=== PATIENT | female | born 1975 | race Caucasian/White ===

== ENCOUNTER 2024-02-20 10:33 | Outpatient (CLI) | payer OTHER, SELFPAY ==
--- NOTE | 2024-02-20 10:39 | XR_ITS ---
WS: [id number] PROCEDURE: XR chest 2V* [id number] CLINICAL INFORMATION: ASTHMA COMPARISON: None. FINDINGS: Heart: Normal cardiac silhouette. Lungs: Lungs are clear. No consolidation or pleural fluid. No acute pulmonary infiltrates. Bones: Normal visualized bony structures. XR/XR chest 2V* [id number] IMPRESSION: Normal chest
[2024-02-20 11:00] VITALS: PULSE 76; RESP 18; O2SAT 98
[2024-02-20] MEDS: albuterol 2.5 mg/3 mL Neb INHALATION (11:00)
[2024-02-20 11:04] VITALS: PULSE 80
== END 2024-02-20 10:34 | disposition home or self-care (01) ==
PROVIDERS: Visit Provider Nurse Practitioner Family
DX: J45.909 Unspecified asthma, uncomplicated (principal)
CPT/HCPCS: 71046; 94060

== ENCOUNTER 2024-04-17 09:59 | Outpatient (CLI) | payer OTHER, SELFPAY ==
--- NOTE | 2024-04-17 10:07 | XR_ITS ---
WS: [id number] XR sinus min 3V* [id number] REASON FOR EXAM: SINUSITIS FINDINGS: Small metallic surgical appliance in the left nasal passage. Minimal nasal septal deviation to the left. Frontal sinuses are somewhat hypoplastic. The ethmoid, frontal, and sphenoid sinuses are clear and well aerated. There may be some mild mucosal thickening within the ethmoid sinuses. No air-fluid level or mass identified. No bone abnormality. XR/XR sinus min 3V* [id number] IMPRESSION: Postoperative nasal surgery. Minimal findings of chronic inflammatory sinus disease.
== END 2024-04-17 10:00 | disposition home or self-care (01) ==
LOC: RAD 10:03
PROVIDERS: PCP Nurse Practitioner Family; Visit Provider Nurse Practitioner Family
DX: J32.9 Chronic sinusitis, unspecified (principal); Z98.890 Other specified postprocedural states; R93.89 Abnormal findings on diagnostic imaging of other specified body structures
CPT/HCPCS: 70220